=== PATIENT | male | born 1995 | race Caucasian/White ===

== ENCOUNTER 2018-08-20 17:08 | Emergency (ER) | payer OTHER ==
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
== END 2018-08-20 18:00 | disposition home or self-care (01) ==
LOC: JD.ED 17:08
DX: S60.512A Abrasion of left hand, initial encounter (principal); S60.511A Abrasion of right hand, initial encounter; F11.10 Opioid abuse, uncomplicated; F17.210 Nicotine dependence, cigarettes, uncomplicated; V49.9XXA Car occupant (driver) (passenger) injured in unspecified traffic accident, initial encounter
CPT/HCPCS: 99282; 99284